=== PATIENT | female | born 1960 | race Caucasian/White ===

== ENCOUNTER 2018-04-27 08:29 | Emergency (ER) | payer OTHER ==
[2018-04-27] MEDS: DEXAMETHASONE 10 MG/ML 1 ML INJ IM (09:30)
[2018-04-27] MEDS: IPRATROPIUM (NEB) 0.5 MG/2.5 ML AMP NEB (09:36)
[2018-04-27] MEDS: ALBUTEROL 0.5% (NEB) 2.5 MG/0.5 ML AMP INH (09:36)
== END 2018-04-27 11:53 | disposition home or self-care (01) ==
LOC: FTE 08:29
DX: J45.901 Unspecified asthma with (acute) exacerbation (principal); I10 Essential (primary) hypertension; E03.9 Hypothyroidism, unspecified
CPT/HCPCS: 71045; 71250; 93005; 94644; 96372; 99285-25